=== PATIENT | female | born 1930 | race Caucasian/White ===

== ENCOUNTER 2017-07-20 21:24 | Inpatient (IN) | payer MEDICARE, BC ==
[~2017-07-20] VITALS: Ht 165.1 cm; Wt 65.4 kg
[~2017-07-20 21:24] MED LIST: ASCO500 PO; ASPI81CH PO; CALCIUM PO; CILO100; Coq-1030 MG; DIPH50 PO; ERGO400 PO; Fish Oil 10001000 MG PO; Flovent Diskus50 MCG; Glycotrol Caps1 EACH; LISI20 PO; LORA.5 PO; Norco 5-325 Ta1 EACH PO; TOCO1000; TRAM50 PO; ZESTORETIC 20-121 EA PO
[2017-07-20 21:51] LABS: BASOPHILS ABSOLUTE AUTO 0.01 K/mm3 (0.00-0.23); BASOPHILS PERCENT AUTO 0 % (0-2); EOSINOPHILS PERCENT AUTO 0 % (0-6); Hemoglobin 9.5 g/dL (11.5-16.0); IMMATURE GRAN PERCENT AUTO 1 % (0-1); LYMPHOCYTES PERCENT AUTO 7 % (21-46); MONOCYTES ABSOLUTE AUTO 0.83 K/mm3 (0.16-1.47); MONOCYTES PERCENT AUTO 7 % (4-13); Mean Corpuscular HGB 30.2 pg (26.0-34.0); Mean Corpuscular HGB Conc 33.9 g/dL (31.5-36.5); Mean Corpuscular Volume 89 fL (80-100); Mean Platelet Volume 9.7 fL (9.1-12.4); NEUTROPHILS ABSOLUTE AUTO 9.92 K/mm3 (1.96-9.15); NEUTROPHILS PERCENT AUTO 85 % (41-73); Platelet Count 201 K/mm3 (150-400); RDW Coefficient Variation 13.2 % (11.7-14.2); RDW Standard Deviation 43.2 fL (35.1-46.3); Red Blood Cell Count 3.15 M/mm3 (3.80-5.20); White Blood Cell Count 11.66 K/mm3 (4.00-11.30)
[2017-07-20 22:06] LABS: Alanine Aminotransfer (ALT/SGP 11 U/L (12-78); Albumin, Blood 2.8 g/dL (3.4-5.0); Albumin/Globulin Ratio 0.8 (0.8-1.8); Alk Phos 71 U/L (50-136); Anion Gap 11 mmol/L (6-16); Aspartate Aminotrans (AST/SGOT 20 U/L (12-37); Bilirubin, Total 0.3 mg/dL (0.1-1.0); Blood Urea Nitrogen 13 mg/dL (8-24); Bun/Creatinine Ratio 18.1 (12.0-20.0); CO2, Blood 26 mmol/L (21-32); Calcium, Blood 7.8 mg/dL (8.5-10.1); Chloride, Blood 89 mmol/L (98-108); Creatinine, Blood 0.72 mg/dL (0.40-1.00); Globulin, Blood 3.5 g/dL (2.2-4.0); Glomerular Filtration Rate >60 (60-); Glucose, Blood 99 mg/dL (70-99); Potassium, Blood 3.7 mmol/L (3.5-5.5); Sodium, Blood 126 mmol/L (136-145); Total Protein, Blood 6.3 g/dL (6.4-8.2)
[2017-07-20 22:41] LABS: PO2 Arterial 57.9 mmHg (80-100); pH Blood Arterial 7.47 (7.35-7.45)
[2017-07-20 22:42] LABS: Magnesium, Blood 1.5 mg/dL (1.6-2.4)
[2017-07-20] MEDS ORDERED: OXYC5 PO (22:42)
[2017-07-20] MEDS ORDERED: ACET500 PO (22:42)
[2017-07-20 23:07] LABS: Influenza A Positive (NEGATIVE); Influenza B Negative (NEGATIVE)
[2017-07-21 05:31] LABS: Hematocrit 25.1 % (33.0-51.0); Hemoglobin 8.4 g/dL (11.5-16.0); Mean Corpuscular HGB 30.3 pg (26.0-34.0); Mean Corpuscular HGB Conc 33.5 g/dL (31.5-36.5); Mean Corpuscular Volume 91 fL (80-100); Mean Platelet Volume 10.1 fL (9.1-12.4); Platelet Count 182 K/mm3 (150-400); RDW Standard Deviation 43.4 fL (35.1-46.3); Red Blood Cell Count 2.77 M/mm3 (3.80-5.20); White Blood Cell Count 10.99 K/mm3 (4.00-11.30)
[2017-07-21 05:51] LABS: Albumin, Blood 2.4 g/dL (3.4-5.0); Anion Gap 9 mmol/L (6-16); Blood Urea Nitrogen 12 mg/dL (8-24); Bun/Creatinine Ratio 16.2 (12.0-20.0); CO2, Blood 27 mmol/L (21-32); Calcium, Blood 7.4 mg/dL (8.5-10.1); Chloride, Blood 92 mmol/L (98-108); Creatinine, Blood 0.74 mg/dL (0.40-1.00); Glomerular Filtration Rate >60 (60-); Glucose, Blood 93 mg/dL (70-99); Phosphorus, Blood 2.4 mg/dL (2.5-4.9); Potassium, Blood 3.6 mmol/L (3.5-5.5); Sodium, Blood 128 mmol/L (136-145)
[2017-07-21 06:07] LABS: BAND PERCENT MAN 3 % (0-8); BASOPHILS PERCENT MAN 0 % (0-2); EOSINOPHILS ABSOLUTE MAN 0.54 K/mm3 (0.00-0.68); EOSINOPHILS PERCENT MAN 5 % (0-6); LYMPHOCYTES ABSOLUTE MAN 0.54 K/mm3 (0.84-5.20); LYMPHOCYTES PERCENT MAN 5 % (21-46); METAMYELOCYTE ABSOLUTE MAN 0.21 K/mm3 (0.00-0.00); METAMYELOCYTE PERCENT MAN 2 % (0-0); MONOCYTES ABSOLUTE MAN 0.32 K/mm3 (0.16-1.47); MONOCYTES PERCENT MAN 3 % (4-13); NEUTROPHILS ABSOLUTE MAN 9.34 K/mm3 (1.96-9.15); SEG NEUTROPHILS PERCENT MAN 82 % (41-73); TOTAL CELLS COUNTED 100
[2017-07-22] MEDS ORDERED: Advair Hfa 230-12 GM INH (05:44)
[2017-07-22] MEDS ORDERED: TOCO1000 PO (05:46)
[2017-07-22] MEDS ORDERED: DIPH50 PO (05:47)
[2017-07-22] MEDS ORDERED: COQ1050 MG PO (05:48)
[2017-07-23 05:35] LABS: BASOPHILS ABSOLUTE AUTO 0.01 K/mm3 (0.00-0.23); BASOPHILS PERCENT AUTO 0 % (0-2); EOSINOPHILS ABSOLUTE AUTO 0.19 K/mm3 (0.00-0.68); EOSINOPHILS PERCENT AUTO 6 % (0-6); Hematocrit 23.9 % (33.0-51.0); Hemoglobin 7.9 g/dL (11.5-16.0); Mean Corpuscular HGB 29.9 pg (26.0-34.0); Mean Corpuscular HGB Conc 33.1 g/dL (31.5-36.5); Mean Corpuscular Volume 91 fL (80-100); Mean Platelet Volume 10.2 fL (9.1-12.4); Platelet Count 186 K/mm3 (150-400); RDW Coefficient Variation 13.3 % (11.7-14.2); RDW Standard Deviation 44.8 fL (35.1-46.3); Red Blood Cell Count 2.64 M/mm3 (3.80-5.20)
[2017-07-23 05:37] LABS: IMMATURE GRAN ABSOLUTE AUTO 0.01 K/mm3 (0.00-0.10); IMMATURE GRAN PERCENT AUTO 0 % (0-1); LYMPHOCYTES ABSOLUTE AUTO 1.29 K/mm3 (0.84-5.20); LYMPHOCYTES PERCENT AUTO 42 % (21-46); MONOCYTES ABSOLUTE AUTO 0.35 K/mm3 (0.16-1.47); MONOCYTES PERCENT AUTO 11 % (4-13); NEUTROPHILS ABSOLUTE AUTO 1.25 K/mm3 (1.96-9.15); NEUTROPHILS PERCENT AUTO 40 % (41-73)
[2017-07-23 05:54] LABS: Anion Gap 6 mmol/L (6-16); Blood Urea Nitrogen 6 mg/dL (8-24); Bun/Creatinine Ratio 8.9 (12.0-20.0); CO2, Blood 28 mmol/L (21-32); Calcium, Blood 7.7 mg/dL (8.5-10.1); Chloride, Blood 101 mmol/L (98-108); Creatinine, Blood 0.67 mg/dL (0.40-1.00); Glomerular Filtration Rate >60 (60-); Glucose, Blood 76 mg/dL (70-99); Sodium, Blood 135 mmol/L (136-145)
[2017-07-24 05:14] LABS: Hematocrit 25.7 % (33.0-51.0); Hemoglobin 8.6 g/dL (11.5-16.0); Mean Corpuscular HGB 30.3 pg (26.0-34.0); Mean Corpuscular HGB Conc 33.5 g/dL (31.5-36.5); Mean Corpuscular Volume 91 fL (80-100); Mean Platelet Volume 10.1 fL (9.1-12.4); Platelet Count 209 K/mm3 (150-400); RDW Coefficient Variation 13.2 % (11.7-14.2); RDW Standard Deviation 43.6 fL (35.1-46.3); Red Blood Cell Count 2.84 M/mm3 (3.80-5.20); White Blood Cell Count 3.72 K/mm3 (4.00-11.30)
[2017-07-24 05:46] LABS: BAND PERCENT MAN 2 % (0-8); BASOPHILS PERCENT MAN 0 % (0-2); EOSINOPHILS ABSOLUTE MAN 0.07 K/mm3 (0.00-0.68); EOSINOPHILS PERCENT MAN 2 % (0-6); LYMPHOCYTES % ATYPICAL MANUAL 3 % (0-0); LYMPHOCYTES ABSOLUTE MAN 1.41 K/mm3 (0.84-5.20); LYMPHOCYTES PERCENT MAN 35 % (21-46); METAMYELOCYTE ABSOLUTE MAN 0.03 K/mm3 (0.00-0.00); METAMYELOCYTE PERCENT MAN 1 % (0-0); MONOCYTES ABSOLUTE MAN 0.22 K/mm3 (0.16-1.47); MONOCYTES PERCENT MAN 6 % (4-13); NEUTROPHILS ABSOLUTE MAN 1.97 K/mm3 (1.96-9.15); SEG NEUTROPHILS PERCENT MAN 51 % (41-73); TOTAL CELLS COUNTED 100
[2017-07-24] MEDS ORDERED: BENADRYL25 MG PO (11:07)
[2017-07-24] MEDS ORDERED: OSELTAMIVIR PHO30 MG PO (11:08)
== END 2017-07-24 13:50 | disposition home health service (06) | DRG 871 ==
LOC: ER 21:24 → MEDS 07-21 02:09 → ENPENDDIS 07-24 10:00 → MEDS 07-24 13:50
PROVIDERS: Emergency Medicine; Family Medicine; Hospitalist
DX: A41.9 Sepsis, unspecified organism (principal); J96.01 Acute respiratory failure with hypoxia; E87.1 Hypo-osmolality and hyponatremia; E86.0 Dehydration; D64.9 Anemia, unspecified; I10 Essential (primary) hypertension; J10.1 Influenza due to other identified influenza virus with other respiratory manifestations; Z98.1 Arthrodesis status; Z90.710 Acquired absence of both cervix and uterus; Z88.0 Allergy status to penicillin
CPT/HCPCS: 36415; 36600; 71046; 80048; 80053; 80069; 82803; 82947; 83605; 83735; 83880; 85025; 87040; 87804; 93005; 93010; 94640; 94760; 96360; 97110; 97116; 97161; 97530; 99285; G8978; G8979; J2405; J3475; J7030

== ENCOUNTER 2017-12-21 11:20 | Emergency (ER) | payer MEDICARE, BC ==
[~2017-12-21] VITALS: Ht 165.1 cm; Wt 58.5 kg
[~2017-12-21 11:20] MED LIST changes: +ACET500 PO; +Advair Hfa 230-12 GM INH; +BENADRYL25 MG PO; +COQ1050 MG PO; +OSELTAMIVIR PHO30 MG PO; +OXYC5 PO; +TOCO1000 PO
[2017-12-21 11:49] LABS: BASOPHILS ABSOLUTE AUTO 0.02 K/mm3 (0.00-0.23); BASOPHILS PERCENT AUTO 0 % (0-2); EOSINOPHILS ABSOLUTE AUTO 0.14 K/mm3 (0.00-0.68); EOSINOPHILS PERCENT AUTO 2 % (0-6); Hematocrit 37.5 % (33.0-51.0); Hemoglobin 12.3 g/dL (11.5-16.0); IMMATURE GRAN ABSOLUTE AUTO 0.02 K/mm3 (0.00-0.10); IMMATURE GRAN PERCENT AUTO 0 % (0-1); LYMPHOCYTES ABSOLUTE AUTO 1.52 K/mm3 (0.84-5.20); LYMPHOCYTES PERCENT AUTO 23 % (21-46); MONOCYTES ABSOLUTE AUTO 0.39 K/mm3 (0.16-1.47); MONOCYTES PERCENT AUTO 6 % (4-13); Mean Corpuscular HGB 30.8 pg (26.0-34.0); Mean Corpuscular HGB Conc 32.8 g/dL (31.5-36.5); Mean Corpuscular Volume 94 fL (80-100); Mean Platelet Volume 10.5 fL (9.1-12.4); NEUTROPHILS ABSOLUTE AUTO 4.47 K/mm3 (1.96-9.15); NEUTROPHILS PERCENT AUTO 68 % (41-73); Platelet Count 186 K/mm3 (150-400); RDW Coefficient Variation 13.6 % (11.7-14.2); RDW Standard Deviation 47.1 fL (35.1-46.3); Red Blood Cell Count 3.99 M/mm3 (3.80-5.20); White Blood Cell Count 6.56 K/mm3 (4.00-11.30)
[2017-12-21 12:09] LABS: Alanine Aminotransfer (ALT/SGP 19 U/L (12-78); Albumin/Globulin Ratio 1.2 (0.8-1.8); Alk Phos 57 U/L (50-136); Anion Gap 8 mmol/L (6-16); Aspartate Aminotrans (AST/SGOT 17 U/L (12-37); Bilirubin, Total 0.4 mg/dL (0.1-1.0); Blood Urea Nitrogen 17 mg/dL (8-24); Bun/Creatinine Ratio 22.1 (12.0-20.0); CO2, Blood 30 mmol/L (21-32); Calcium, Blood 9.1 mg/dL (8.5-10.1); Chloride, Blood 104 mmol/L (98-108); Creatinine, Blood 0.77 mg/dL (0.40-1.00); Globulin, Blood 3.2 g/dL (2.2-4.0); Glomerular Filtration Rate >60 (60-); Glucose, Blood 92 mg/dL (70-99); Potassium, Blood 4.2 mmol/L (3.5-5.5); Sodium, Blood 142 mmol/L (136-145); Total Protein, Blood 7.2 g/dL (6.4-8.2); Troponin I <0.015 ng/mL (0.000-0.040)
== END 2017-12-21 15:59 | disposition home or self-care (01) ==
LOC: ER 11:20
PROVIDERS: Emergency Medicine
DX: I10 Essential (primary) hypertension (principal); Z88.0 Allergy status to penicillin; Z88.5 Allergy status to narcotic agent; Z91.041 Radiographic dye allergy status; Z79.899 Other long term (current) drug therapy; Z79.82 Long term (current) use of aspirin; Z87.891 Personal history of nicotine dependence
CPT/HCPCS: 36415; 71046; 80053; 84484; 85025; 93005; 93010; 99284

== ENCOUNTER 2018-04-06 10:24 | Emergency (ER) | payer MEDICARE, BC ==
[~2018-04-06] VITALS: Ht 165.1 cm; Wt 59.4 kg
[2018-04-06] MEDS ORDERED: HYDCHL25 PO (10:58)
[2018-04-06 11:20] LABS: BASOPHILS ABSOLUTE AUTO 0.01 K/mm3 (0.00-0.23); BASOPHILS PERCENT AUTO 0 % (0-2); EOSINOPHILS ABSOLUTE AUTO 0.11 K/mm3 (0.00-0.68); EOSINOPHILS PERCENT AUTO 2 % (0-6); Hematocrit 34.5 % (33.0-51.0); Hemoglobin 11.3 g/dL (11.5-16.0); IMMATURE GRAN ABSOLUTE AUTO 0.02 K/mm3 (0.00-0.10); IMMATURE GRAN PERCENT AUTO 0 % (0-1); LYMPHOCYTES ABSOLUTE AUTO 1.41 K/mm3 (0.84-5.20); LYMPHOCYTES PERCENT AUTO 22 % (21-46); MONOCYTES ABSOLUTE AUTO 0.42 K/mm3 (0.16-1.47); MONOCYTES PERCENT AUTO 7 % (4-13); Mean Corpuscular HGB 31.9 pg (26.0-34.0); Mean Corpuscular HGB Conc 32.8 g/dL (31.5-36.5); Mean Corpuscular Volume 98 fL (80-100); Mean Platelet Volume 10.5 fL (9.1-12.4); NEUTROPHILS ABSOLUTE AUTO 4.32 K/mm3 (1.96-9.15); NEUTROPHILS PERCENT AUTO 69 % (41-73); Platelet Count 171 K/mm3 (150-400); RDW Coefficient Variation 12.8 % (11.7-14.2); Red Blood Cell Count 3.54 M/mm3 (3.80-5.20); White Blood Cell Count 6.29 K/mm3 (4.00-11.30)
[2018-04-06 11:36] LABS: Alanine Aminotransfer (ALT/SGP 18 U/L (12-78); Albumin/Globulin Ratio 1.3 (0.8-1.8); Alk Phos 54 U/L (50-136); Anion Gap 9 mmol/L (6-16); Aspartate Aminotrans (AST/SGOT 17 U/L (12-37); Bilirubin, Total 0.6 mg/dL (0.1-1.0); Blood Urea Nitrogen 20 mg/dL (8-24); Bun/Creatinine Ratio 25.2 (12.0-20.0); CO2, Blood 29 mmol/L (21-32); Calcium, Blood 9.1 mg/dL (8.5-10.1); Chloride, Blood 100 mmol/L (98-108); Creatinine, Blood 0.79 mg/dL (0.40-1.00); Glomerular Filtration Rate >60 (60-); Glucose, Blood 92 mg/dL (70-99); Sodium, Blood 138 mmol/L (136-145); Troponin I <0.015 ng/mL (0.000-0.040)
== END 2018-04-06 13:00 | disposition home or self-care (01) ==
LOC: ER 10:24
PROVIDERS: Emergency Medicine
DX: I20.8 Other forms of angina pectoris (principal); I10 Essential (primary) hypertension; Z88.0 Allergy status to penicillin; Z88.5 Allergy status to narcotic agent; Z91.041 Radiographic dye allergy status; Z79.899 Other long term (current) drug therapy; Z79.82 Long term (current) use of aspirin
CPT/HCPCS: 36415; 80053; 84484; 85025; 93005; 93010; 99284-25

== ENCOUNTER 2018-07-22 15:31 | Emergency (ER) | payer MEDICARE, BC, OTHER ==
[~2018-07-22] VITALS: Ht 157.5 cm; Wt 70.3 kg
[~2018-07-22 15:31] MED LIST changes: +HYDCHL25 PO
[2018-07-22 16:46] LABS: BASOPHILS ABSOLUTE AUTO 0.03 K/mm3 (0.00-0.23); BASOPHILS PERCENT AUTO 0 % (0-2); EOSINOPHILS ABSOLUTE AUTO 0.17 K/mm3 (0.00-0.68); EOSINOPHILS PERCENT AUTO 3 % (0-6); Hemoglobin 10.9 g/dL (11.5-16.0); IMMATURE GRAN ABSOLUTE AUTO 0.01 K/mm3 (0.00-0.10); IMMATURE GRAN PERCENT AUTO 0 % (0-1); LYMPHOCYTES ABSOLUTE AUTO 2.46 K/mm3 (0.84-5.20); LYMPHOCYTES PERCENT AUTO 36 % (21-46); MONOCYTES ABSOLUTE AUTO 0.46 K/mm3 (0.16-1.47); MONOCYTES PERCENT AUTO 7 % (4-13); Mean Corpuscular HGB 31.9 pg (26.0-34.0); Mean Corpuscular Volume 97 fL (80-100); Mean Platelet Volume 10.9 fL (9.1-12.4); NEUTROPHILS ABSOLUTE AUTO 3.77 K/mm3 (1.96-9.15); NEUTROPHILS PERCENT AUTO 55 % (41-73); Platelet Count 188 K/mm3 (150-400); RDW Coefficient Variation 13.4 % (11.7-14.2); RDW Standard Deviation 47.8 fL (35.1-46.3); Red Blood Cell Count 3.42 M/mm3 (3.80-5.20)
[2018-07-22 17:04] LABS: Alanine Aminotransfer (ALT/SGP 22 U/L (12-78); Albumin, Blood 3.6 g/dL (3.4-5.0); Albumin/Globulin Ratio 1.2 (0.8-1.8); Alk Phos 46 U/L (50-136); Anion Gap 9 mmol/L (6-16); Aspartate Aminotrans (AST/SGOT 27 U/L (12-37); Bilirubin, Total 0.4 mg/dL (0.1-1.0); Blood Urea Nitrogen 22 mg/dL (8-24); Bun/Creatinine Ratio 22.9 (12.0-20.0); CO2, Blood 28 mmol/L (21-32); Calcium, Blood 8.8 mg/dL (8.5-10.1); Chloride, Blood 96 mmol/L (98-108); Creatinine, Blood 0.96 mg/dL (0.40-1.00); Globulin, Blood 2.9 g/dL (2.2-4.0); Glomerular Filtration Rate 58 (60-); Glucose, Blood 202 mg/dL (70-99); Sodium, Blood 133 mmol/L (136-145); Total Protein, Blood 6.5 g/dL (6.4-8.2); Troponin I <0.015 ng/mL (0.000-0.040)
== END 2018-07-22 17:50 | disposition home or self-care (01) ==
LOC: ER 15:31
PROVIDERS: Internal Medicine
DX: R07.89 Other chest pain (principal); Z88.0 Allergy status to penicillin; Z88.5 Allergy status to narcotic agent; Z79.899 Other long term (current) drug therapy; Z79.82 Long term (current) use of aspirin; I10 Essential (primary) hypertension; Z87.891 Personal history of nicotine dependence
CPT/HCPCS: 80053; 84484; 85025; 93005; 93010; 99284-25

== ENCOUNTER 2019-05-22 09:35 | Observation (INO) | payer MEDICARE, BC ==
[~2019-05-22] VITALS: Ht 160 cm; Wt 62.6 kg
[~2019-05-22 09:35] MED LIST changes: +Bacid1 EACH PO; -ERGO400 PO; +MELATONIN5 M1 PO; +NITR.4SL SL; +Vitamin D2000 UNIT PO
[2019-05-22] MEDS ORDERED: ASPI325 PO (10:44)
[2019-05-22 14:39] LABS: BASOPHILS ABSOLUTE AUTO 0.02 K/mm3 (0.00-0.23); BASOPHILS PERCENT AUTO 0 % (0-2); EOSINOPHILS ABSOLUTE AUTO 0.19 K/mm3 (0.00-0.68); EOSINOPHILS PERCENT AUTO 3 % (0-6); Hematocrit 28.8 % (33.0-51.0); Hemoglobin 9.5 g/dL (11.5-16.0); IMMATURE GRAN ABSOLUTE AUTO 0.01 K/mm3 (0.00-0.10); IMMATURE GRAN PERCENT AUTO 0 % (0-1); LYMPHOCYTES ABSOLUTE AUTO 2.44 K/mm3 (0.84-5.20); LYMPHOCYTES PERCENT AUTO 37 % (21-46); MONOCYTES PERCENT AUTO 6 % (4-13); Mean Corpuscular Volume 100 fL (80-100); NEUTROPHILS ABSOLUTE AUTO 3.61 K/mm3 (1.96-9.15); NEUTROPHILS PERCENT AUTO 54 % (41-73); Platelet Count 171 K/mm3 (150-400); RDW Coefficient Variation 13.2 % (11.7-14.2); RDW Standard Deviation 48.5 fL (35.1-46.3); Red Blood Cell Count 2.88 M/mm3 (3.80-5.20); White Blood Cell Count 6.67 K/mm3 (4.00-11.30)
--- NOTE | 2019-05-22 16:00 | NUR ---
ADMIT ASSESSMENT PT BROUGHT TO ICU 3 VIA BED BY MANAGER MAINTENANCE ELIZABETH. PT VERY PLEASENT AND COOPERATIVE AND DENIES PAIN. ALERT AND ORIENT. VSS, BILAT UE PALP PULSE, RLE DP PULSE ABSENT PT PULSE DOPPLER, LLE DP AND PT DOPPLER. BILAT LE COOL PALE AND DRY TO THE TOUCH. LEFT FEMORAL FEMSTOP IN PLACE WITH PRESSURE 10MM ABOVE SBP WITH SIGNIFICANT HEMATOMA.. RIGHT FEMORAL WITH MYNX DEVICE AND MINIMAL HEMATOMA. WILL CONT TO MONITOR SITE AND TO US TO ASSURE NO FURTHER PROGRESSION OF HEMATOMA. RA, CLEAR T/O. NPO, ABD SOFT ROUND AND NON TENDER WITH BTS T/O AND NO BM. HANCOCK IN PLACE AND DRAINING YELLOW CLEAR URINE. WILL CONT TO MONITOR AND PT TO REMAIN FLAT UNTIL 1999.
--- NOTE | 2019-05-22 18:00 | NUR ---
PT UPDATE LEFT FEMORAL PSUEDOANEURYSM EVOLVING VIA US AND TECH TO HOLD DIRECT PRESSURE TO SITE FOR 30 MIN WITH FEMSTOP REMOVED, AT BEDSIDE AND WILL CONT TO MONITOR
--- NOTE | 2019-05-22 19:22 | NUR ---
ASSESSMENT/ASSUMED CARE PT RESTING QUIELTY. REPORTS PAIN TO BILAT FEET AND ABD 5/10. REFUSING PAIN MED AT THIS TIME. PT STATES,"THIS HAS BEEN GOING ON SINCE JAN". LUNGS CLEAR ON ROOMAIR. RESP EVEN AND NONLABORED. DENIES SOB OR COUGH. HEART RATE REGULAR WITH PAC'S NOTED. DENIES CHEST PAIN OR PRESSURE. BT+ ABD SOFT AND NONTENDER. RIGHT GROIN SITE STABLE WITH MYNX DRSG INPLACE. SITE SOFT TO PALPATION. NO HEMATOMA OR BLEEDING NOTED. LEFT GROIN WITH FEMSTOP IN PLACE. BRUISING NOTED AROUND SITE. NO BLEEDING NOTED. SITE SOFT TO PALPATION BUT TENDER. BILAT PEDAL PULSES PER DOPPLER EXCEPT RIGHT D. PEDS UNABLE TO GET CLEAR PULSE. NO EDEMA NOTED. IV TO LEFT AC SALINE LOCKED, SITE CLEAR, FLUSHED WITHOUT DIFFICULTY.
--- NOTE | 2019-05-22 20:10 | NUR ---
PAIN PT C/O PAIN TO LEFT GROIN AND BILAT FEET 7/10 MED WITH FENTANYL 50 MCQ. HS MEDS GIVEN. FEMSTOP TO LEFT GROIN CHECKED. AREA TO LEFT INNER THIGH BRUISING NOTED. NO BLEEDING OR HEMATOMA.
--- NOTE | 2019-05-22 22:04 | NUR ---
PAIN PT C/O PAIN TO RIGHT HEEL,"BURNING", BILAT FEET AND LEFT GROIN 5/10. PILLOW PLACED UNDER HEELS TO GET OFF BED. RIGHT GROIN STABLE, NO BLEEDING OR HEMATOMA. LEFT GROIN WITH FEMSTOP IN PLACE. BRUISING NOTED TO THIGH. SOFT TO PALPATION. NO BLEEDING NOTED. PEDAL PULSES PER DOPPLER EXCEPT RIGHT D.PEDS, UNABLE TO DOPPLER. PT MED WITH TYLENOL 650MG PO AND FENTANYL 50 MCQ IV FOR PAIN.
--- NOTE | 2019-05-23 00:12 | NUR ---
REASSESSMENT PT AWAKE. C/0 PAIN TO LEFT GROIN AND BILAT FEET WITH BURNING TO RIGHT HEEL. PT MED WITH FENTANYL 50 MCQ, PT STATES,"THIS STUFF WORKS REALLY WELL. MY PAIN GETS DOWN TO ABOUT 3/10 AFTER YOU GIVE ME THE MED". NO CHANGE TO LEFT GROIN SITE. FEMSTOP IN PLACE. DOPPLER PULSES NO CHANGE.
--- NOTE | 2019-05-23 03:14 | NUR ---
PAIN PT AWAKE. C/O PAIN 9/10 TO BILAT FEET AND LEFT GROIN. MED WITH FENTANYL 50 MCQ. NO CHANGE TO LEFT GROIN SITE. FEMSTOP IN PLACE. PEDAL PULSES VIA DOPPLER. VERY, VERY FAINT PULSE HEARD TO RIGHT D. PEDS VIA DOPPLER
--- NOTE | 2019-05-23 05:50 | NUR ---
PAIN PT AWAKE, C/O PAIN TO LEFT GROIN AND BILAT FEET 8/10. MED WITH FENTANYL 50 MCQ. LEFT GROIN STABLE WITH FEMSTOP ON.
--- NOTE | 2019-05-23 06:01 | NUR ---
SHIFT SUMMARY PT RESTING QUIETLY AT THIS TIME. MED WITH FENTANYL 50 MCQ DURING THE NIGHT FOR PAIN TO LEFT GROIN AND BILAT FEET WITH GOOD RESULTS. RIGHT GROIN STABLE WITH MYNX DRSG INTACT. RIGHT GROIN SOFT TO PALPATION, NO BLEEDING OR HEMATOMA NOTED. LEFT GROIN WITH FEMSTOP ON. BRUISING TO THIGH AND GROIN NOTED. AREA SOFT TO PALPATION. NO BLEEDING NOTED. PEDAL PULSES PER DOPPLER EXCEPT FOR RIGHT D. PEDS. VERY VERY FAINT PULSE TO RIGHT D. PEDS VIA DOPPLER AT TIMES. VERY HARD TO HEAR. FEET COOL TO TOUCH. PT REMAINED FLAT DURING THE NIGHT. VSS. REPORT TO ON COMING NURSES
--- NOTE | 2019-05-23 10:24 | NUR ---
SHIFT ASSESMENT PT VERY PLEASENT AND COOPERATIVE AND C/O FOOT PAIN AND FEMSTOP PAIN ALERT AND ORIENT. VSS, BILAT UE DOPPLERABLE PULSE, RLE DP PULSE ABSENT PT PULSE DOPPLER, LLE DP AND PT DOPPLER. BILAT LE COOL PALE AND DRY TO THE TOUCH. LEFT FEMORAL FEMSTOP IN PLACE WITH PRESSURE 10MM ABOVE SBP WITH SIGNIFICANT HEMATOMA. RIGHT FEMORAL WITH MYNX DEVICE AND MINIMAL HEMATOMA. WILL CONT TO MONITOR SITE AND TO US TO ASSURE NO FURTHER PROGRESSION OF HEMATOMA. RA, CLEAR T/O, ABD SOFT ROUND AND NON TENDER WITH BTS T/O AND NO BM. HANCOCK IN PLACE AND DRAINING YELLOW CLEAR URINE AND REQUIRED R/T PT MOBILITY. WILL CONT TO MONITOR.
--- NOTE | 2019-05-23 16:13 | NUR ---
DISCHARGE Pt discharged from unit at 1545 via wheelchair, accompanied by this RN and her daughter. This RN ambulated pt, removed liang, and IV access prior to discharge. This RN assessed cath site with pt and educated on wound care and activity restriction. Written prescription provided for hydrocodone. No additional new medications called to pt's pharmacy[facility].
[2019-05-23] MEDS ORDERED: HYDR1TAB94 PO (16:16)
== END 2019-05-23 15:45 | disposition home or self-care (01) ==
LOC: MHTC 09:35 → ICUE 15:24 → MHTC 15:25 → ICUE 05-23 15:45
PROVIDERS: ADMIT Radiology Diagnostic Radiology
DX: I70.203 Unspecified atherosclerosis of native arteries of extremities, bilateral legs (principal); S30.1XXA Contusion of abdominal wall, initial encounter; I97.418 Intraoperative hemorrhage and hematoma of a circulatory system organ or structure complicating other circulatory system procedure; Z79.51 Long term (current) use of inhaled steroids; Z79.82 Long term (current) use of aspirin; Z79.899 Other long term (current) drug therapy; Z88.0 Allergy status to penicillin; Z88.5 Allergy status to narcotic agent; Z88.6 Allergy status to analgesic agent; Z88.8 Allergy status to other drugs, medicaments and biological substances; Z91.041 Radiographic dye allergy status; Y65.8 Other specified misadventures during surgical and medical care; Y71.3 Surgical instruments, materials and cardiovascular devices (including sutures) associated with adverse incidents
CPT/HCPCS: 37224; 37226; 37228; 37232; 37246; 75625; 75716; 75774; 76936; 85025; 85347; 86850; 86900; 86901; 93926; 96374; 96376; 99152; 99153; A9270; A9270-GY; C1725; C1769; C1874; C1887; C1894; G0378; J1644; J2250; J3010; J7030; Q9967

== ENCOUNTER 2019-06-06 11:22 | Day surgery (SDC) | payer MEDICARE, BC ==
[~2019-06-06] VITALS: Ht 160 cm; Wt 71.6 kg
[~2019-06-06 11:22] MED LIST changes: +ANTI-DIARRHEAL2 MG PO; +ASPI325 PO; +Aspir 8181 MG PO; +CALCIUM 600 +1 EA11 PO; +HYDR1TAB94 PO
[2019-06-06] MEDS ORDERED: HYDR1TAB94 PO (13:34)
--- NOTE | 2019-06-06 18:44 | NUR ---
PATIENT AND DAUGHTER IN ROOM, PATIENT ATE ALL HER DINNER, DENIES NEW PAIN. TOES PERIPHERAL TO SURG SITE ARE PINK, COOL, W O2 SATURATION AT OR ABOVE 98% SINCE ARRIVAL TO UNIT. NO NEW REDNESS, NO NEW SWELLING AT SITE, ALL VSS AND WNL FOR THIS PATIENT. SITE IS COVERED WITH GAUZE WITH WINDOW CUT OUT, AND CLEAR DRESSING OVER THAT. SITE IS VISIBLE AND INTACT. WILL CONTINUE TO MONITOR, AND WILL PASS CARE AND REPORT TO ONCOMING SHIFT AT 1900. BED LOCKED AND LOW, CALL LIGHT W/IN REACH.
--- NOTE | 2019-06-07 07:30 | NUR ---
ASSUMED CARE: PT RESTING IN BED AT THIS TIME. NO ACUTE NEEDS NOTED.
--- NOTE | 2019-06-07 07:34 | NUR ---
VICTORINO SUMMARY PATIENT PLEASENT AND COOPERATIVE THROUGHOUT THE NIGHT. PATIENT'S ACCESS SITE TO RIGHT LOWER LEG HAS MINIMAL OOZING. NO CHAGNES TO SITE THROUGHOUT THE NIGHT. NO HEMATOMA FORMATION NOTED. PULSES PALPABLE TO RIGHT FOOT. PATIENT MEDICATED FOR PAIN PER EMAR. PATIENT APPEARED TO SLEEP WELL THROUGHOUT THE NIGHT. VITAL SIGNS CHARTED. REPORT GIVEN TO ONCOMING RN.
--- NOTE | 2019-06-07 11:48 | NUR ---
IV DC'D WNL. TELE OFF. INSTRUCTIONS GIVEN TO PT AND DAUGHTER REGARDING FOLLOW UP MEDS. PT WAS CONCERNED ABOUT PAIN MEDICATIONS AND STATES SHE ONLY HAS 2 TABS [address]ET[address] CALL TO DR CIFUENTES'S OFFICE DUE TO DR CIFUENTES BEING OUT OF TOWN. SIMONE STATED SHE WOULD CALL DR CIFUENTES ABOUT THIS. TOLD DAUGHTER AND PT TO CALL IN A FEW HOURS IF THEY HAD NOT HEARD BACK.
== END 2019-06-07 11:35 | disposition home or self-care (01) ==
LOC: MHTC 11:22 → PCU 16:00 → MHTC 06-07 11:35
DX: I70.201 Unspecified atherosclerosis of native arteries of extremities, right leg (principal); I10 Essential (primary) hypertension; E78.5 Hyperlipidemia, unspecified; I25.10 Atherosclerotic heart disease of native coronary artery without angina pectoris; F41.9 Anxiety disorder, unspecified; Z87.891 Personal history of nicotine dependence; Z88.5 Allergy status to narcotic agent; Z88.0 Allergy status to penicillin; Z88.8 Allergy status to other drugs, medicaments and biological substances; Z88.6 Allergy status to analgesic agent; Z91.041 Radiographic dye allergy status; Z79.82 Long term (current) use of aspirin; Z79.899 Other long term (current) drug therapy
CPT/HCPCS: 37226; 37228; 75710; 75774; 76937; 99152; 99153; A9270-GY; C1725; C1769; C1874; C1887; C1894; J1644; J2060; J2250; J3010; J7030; Q9967

== ENCOUNTER 2020-06-04 22:22 | Emergency (ER) | payer MEDICARE, BC ==
[~2020-06-04] VITALS: Ht 165.1 cm; Wt 63.5 kg
[2020-06-04 23:00] LABS: BASOPHILS ABSOLUTE AUTO 0.03 K/mm3 (0.00-0.23); BASOPHILS PERCENT AUTO 0 % (0-2); EOSINOPHILS ABSOLUTE AUTO 0.23 K/mm3 (0.00-0.68); EOSINOPHILS PERCENT AUTO 3 % (0-6); Hematocrit 36.8 % (33.0-51.0); Hemoglobin 11.7 g/dL (11.5-16.0); IMMATURE GRAN ABSOLUTE AUTO 0.02 K/mm3 (0.00-0.10); IMMATURE GRAN PERCENT AUTO 0 % (0-1); LYMPHOCYTES ABSOLUTE AUTO 2.15 K/mm3 (0.84-5.20); LYMPHOCYTES PERCENT AUTO 31 % (21-46); MONOCYTES ABSOLUTE AUTO 0.51 K/mm3 (0.16-1.47); MONOCYTES PERCENT AUTO 7 % (4-13); Mean Corpuscular HGB 31.6 pg (26.0-34.0); Mean Corpuscular HGB Conc 31.8 g/dL (31.5-36.5); Mean Corpuscular Volume 100 fL (80-100); NEUTROPHILS ABSOLUTE AUTO 3.98 K/mm3 (1.96-9.15); NEUTROPHILS PERCENT AUTO 58 % (41-73); RDW Coefficient Variation 12.7 % (11.7-14.2); RDW Standard Deviation 46.4 fL (35.1-46.3); White Blood Cell Count 6.92 K/mm3 (4.00-11.30)
[2020-06-04 23:02] LABS: Mean Platelet Volume 10.9 fL (9.1-12.4); Platelet Count 173 K/mm3 (150-400)
[2020-06-04 23:16] LABS: Alanine Aminotransfer (ALT/SGP 17 U/L (12-78); Albumin, Blood 3.8 g/dL (3.4-5.0); Albumin/Globulin Ratio 1.3 (0.8-1.8); Alk Phos 71 U/L (50-136); Anion Gap 4 mmol/L (6-16); Aspartate Aminotrans (AST/SGOT 19 U/L (12-37); Bilirubin, Total 0.3 mg/dL (0.1-1.0); Blood Urea Nitrogen 16 mg/dL (8-24); Bun/Creatinine Ratio 23.2 (12.0-20.0); CO2, Blood 29 mmol/L (21-32); Calcium, Blood 9.3 mg/dL (8.5-10.1); Chloride, Blood 103 mmol/L (98-108); Creatinine, Blood 0.69 mg/dL (0.40-1.00); Glomerular Filtration Rate >60 (60-); Glucose, Blood 103 mg/dL (70-99); Potassium, Blood 4.1 mmol/L (3.5-5.5); Sodium, Blood 136 mmol/L (136-145); Total Protein, Blood 6.8 g/dL (6.4-8.2)
== END 2020-06-05 02:38 | disposition home or self-care (01) ==
LOC: ER 22:22
PROVIDERS: Emergency Medicine
DX: R42 Dizziness and giddiness (principal); R03.0 Elevated blood-pressure reading, without diagnosis of hypertension; I10 Essential (primary) hypertension; Z88.0 Allergy status to penicillin; Z88.5 Allergy status to narcotic agent; Z91.02 Food additives allergy status; Z79.82 Long term (current) use of aspirin; Z79.899 Other long term (current) drug therapy
CPT/HCPCS: 80053; 85025; 93005; 93010; 99284-25

== ENCOUNTER 2020-06-18 17:22 | Emergency (ER) | payer MEDICARE, BC ==
[~2020-06-18] VITALS: Ht 165.1 cm; Wt 63.5 kg
[2020-06-18] MEDS ORDERED: Colace100 MG PO (18:33)
[2020-06-18] MEDS ORDERED: HYDR1TAB94 PO (18:33)
== END 2020-06-18 18:56 | disposition home or self-care (01) ==
LOC: ER 17:22
DX: S20.211A Contusion of right front wall of thorax, initial encounter (principal); I25.10 Atherosclerotic heart disease of native coronary artery without angina pectoris; I10 Essential (primary) hypertension; Z88.0 Allergy status to penicillin; Z88.5 Allergy status to narcotic agent; Z88.8 Allergy status to other drugs, medicaments and biological substances; Z79.82 Long term (current) use of aspirin; Z79.899 Other long term (current) drug therapy; Z87.891 Personal history of nicotine dependence; W01.0XXA Fall on same level from slipping, tripping and stumbling without subsequent striking against object, initial encounter
CPT/HCPCS: 71101; 99283-25